=== PATIENT | female | born 1965 | race Caucasian/White ===

== ENCOUNTER 2017-03-01 22:11 | Emergency (ER) | payer OTHER ==
[2017-03-01 22:16] VITALS: TEMP 98.8
[2017-03-01] MEDS ORDERED: IBUPROFEN 600 MG TAB PO ONE (22:23)
[2017-03-01] MEDS ORDERED: OXYCODONE/APAP 5/325 TAB PO ONE (22:23)
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
[2017-03-01] MEDS ORDERED: OXYCODONE/APAP 5/325MG PREPACK#4 BTL TAKEHOME ONE (22:38)
[2017-03-01] MEDS ORDERED: ONDANSETRON DISINTEGRATING 4 MG TAB PO ONE (23:02)
[2017-03-01 23:58] VITALS: BP 118/74; PULSE 59; RESP 14; O2SAT 93
== END 2017-03-01 23:56 | disposition home or self-care (01) ==
DX: S62.002A Unspecified fracture of navicular [scaphoid] bone of left wrist, initial encounter for closed fracture (principal); S52.502A Unspecified fracture of the lower end of left radius, initial encounter for closed fracture; S63.502A Unspecified sprain of left wrist, initial encounter; V18.4XXA Pedal cycle driver injured in noncollision transport accident in traffic accident, initial encounter; Y93.55 Activity, bike riding
CPT/HCPCS: A4565

== ENCOUNTER → 2018-01-03 | Outpatient (CLI) | payer OTHER | LOC: BMCIMAGING 14:43 | PROVIDERS: ATTEND Family Medicine | DX: M12.841 Other specific arthropathies, not elsewhere classified, right hand (principal) ==

== ENCOUNTER → 2018-01-11 | Outpatient (CLI) | payer OTHER | LOC: BMCIMAGING 10:45 | PROVIDERS: ATTEND Orthopaedic Surgery Hand Surgery | DX: S62.340D Nondisplaced fracture of base of second metacarpal bone, right hand, subsequent encounter for fracture with routine healing (principal) ==